=== PATIENT | male | born 1980 | race Caucasian/White ===

== ENCOUNTER 2023-08-19 05:07 | Emergency (ER) | payer OTHER, SELFPAY ==
--- NOTE | ~2023-08-19 | XR_ITS ---
EXAMINATION: XR SHOULDER, RIGHT CLINICAL INFORMATION: Acute pain COMPARISON: None available. TECHNIQUE: Two views of the right shoulder. FINDINGS: Glenohumeral alignment is anatomic on these views. No acute fracture is seen. The acromioclavicular joint is intact with minimal degenerative change. XR/XR shoulder RT min 2V IMPRESSION: No acute findings identified.
[2023-08-19 05:07] VITALS: BP 166/109; PULSE 95; RESP 18; TEMP 36.8; O2SAT 99; BMI 35.9
--- NOTE | 2023-08-19 06:33 | ED_ITS ---
HPI - Extremity Problem General Chief complaint: Extremity Injury, Upper Stated complaint: Shoulder pain Time Seen by Provider: 08/19/23 06:31 Source: patient Mode of arrival: ambulatory Limitations: no limitations History of Present Illness HPI Narrative: 43 yo male with history of HLD, HTN, right hand dominant here with complaints of right shoulder pain x 3-4 days with no known injury. 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 He has been taking Tylenol for pain with continued symptoms. Patient reports pain begins in his right shoulder and radiates down the right arm, worsened with movement. No associated numbness, tingling or weakness. Related Data Previous Rx's ?Medication ?Instructions ?Recorded cyclobenzaprine 10 mg tablet 10 mg PO TID PRN muscle spasm #15 08/19/23 tabs oxycodone 5 mg tablet 5 mg PO Q6H PRN pain #5 tabs 08/19/23 prednisone 20 mg tablet 60 mg (3 x 20 mg) PO DAILY #15 tabs 08/19/23 Allergies Allergy/AdvReac Type Severity Reaction Status Date / Time No Known Allergies Allergy Verified 08/19/23 05:10 Review of Systems Review of Systems: Yes all other systems are reviewed and are negative Constitutional: Constitutional: Reports no additional constitutional c omplaints, Denies body ache(s), Denies chills, Denies fever(s), Denies headache(s) and Denies weakness Eyes: Eyes: Reports no additional eye complaints and Denies change in vision ENT: Reports system reviewed and no additional complaints, except as documented, Denies dizziness, Denies headache(s), Denies nasal congestion, Denies nasal discharge and Denies neck pain Cardiovascular: Cardiovascular: Reports no additional cardiovascular complaints, Denies chest pain, Denies leg edema and Denies dyspnea Respiratory: Respiratory: Reports no additional respiratory complaints, Denies cough and Denies dyspnea Gastrointestinal: Gastrointestinal: Reports no additional gastrointestinal complaints, Denies abdominal pain, Denies diarrhea, Denies nausea and Denies vomiting Genitourinary: Genitourinary: Denies urinary incontinence Musculoskeletal: Musculoskeletal: Reports no additional musculoskeletal complaints, Denies back pain, Reports arthralgias, Denies joint swelling, Denies neck pain, Denies numbness, Reports radiating pain into limb and Denies tingling Integumentary/Breasts: Skin/Breast: Reports system reviewed and no additional complaints, except as docu and Denies rash Neurologic: Reports system reviewed and no additional complaints, except as documented, Denies Abnormal speech present, Denies dizziness, Denies headache(s), Denies numbness, Denies tingling and Denies weakness PMFSH Past Medical History Attestation statement: The following information was validated with the patient. Source: old records reviewed and nursing notes reviewed Social History Social History Advance Directives: No Advance Directives Information Provided: Yes Do you have a plan to hurt others: No Plan Physical Exam Vital Signs: Vital Signs: Last Vital Signs Temp 98.2 F 08/19/23 07:40 Pulse 87 08/19/23 07:40 Resp 14 08/19/23 07:40 BP 164/98 H 08/19/23 07:40 Pulse Ox 97 08/19/23 07:40 O2 Del Method Room Air 08/19/23 07:40 BMI result Body Mass Index 35.9 Const: General: cooperative, healthy appearing, comfortable and no acute distress Orientation/consciousness: patient oriented x3 Limitations: no limitations HEENT: Head: Yes normal to inspection Ears: hearing grossly normal bilaterally General nose exam: Normal external nose present Face and sinus: Yes normal facial exam Mouth: Normal oral and palatal mucosa present Throat: Yes posterior oropharynx normal Eyes: General: appearance normal, both eyes and all related structures Pupils: Equal, round and reactive pupils present Neck: Neck: Yes normal visual inspection Chest: Chest palpation & inspection: normal inspection of the chest Resp: Effort & Inspection: normal respiratory effort Auscultation: clear to auscultation bilaterally Cardio: Rate: regular rate Rhythm: regular rhythm Peripheral pulses: Peripheral pulses 2+ throughout GI: Inspection: Yes normal to inspection Palpation (GI): Soft to palpation and nontender Auscultation: normal bowel sounds Back/Spine/Pelvis: Thoracic/Lumbar Spine: thoracic and lumbar spine normal to inspection Skin: General skin exam: no rashes or lesions noted Neuro: General: patient oriented x3, no focal motor deficits and normal sensation to monofilament Cranial nerves: Yes Equal, round and reactive pupils present Cognition (Neuro): normal cognition Speech: No Abnormal speech present Gait exam (Neuro): Normal gait present Motor exam (neuro): 5/5 motor strength present throughout Extrem: Other: Pain on palpation to the right anterior/posterior/superior shoulder as well as palpable muscle spasm in the right trapezius. Pain is worsened with active/passive abduction of the shoulder. FROM with no pain of right elbow, right wrist and right hand. 2+ radial/ulnar pulses. Normal sensation. General: Yes normal to inspection Course Course Course Narrative: X-rays show no bony abnormality. Seems more muscular on exam. Improvement with analgesia in the ER. Will discharge home with recommendations to f/u with PCP and strict return precautions. Medications Administered Discontinued Medications Generic Name Dose Route Start Last Admin Trade Name Leonardo PRN Reason Stop Dose Admin Cyclobenzaprine HCl 10 mg 08/19/23 06:39 08/19/23 07:03 Cyclobenzaprine Hcl 10 Mg Tablet PO 08/19/23 06:40 10 mg ONCE ONE Administration Ketorolac Tromethamine 60 mg 08/19/23 06:39 08/19/23 07:03 Ketorolac Tromethamine 60 Mg/2 Ml Vial IM 08/19/23 06:40 60 mg ONCE ONE Administration Oxycodone HCl 5 mg 08/19/23 07:57 08/19/23 08:07 Oxycodone Hcl Immed Release 5 Mg Tablet PO 08/19/23 07:58 5 mg ONCE ONE Administration Medical Decision Making Medical Decision Making [facility] Narrative: 43 yo male here with complaints of atraumatic right shoulder pain which radiates down right arm with no associated numbness, tingling or weakness x 3-4 days. Pain on palpation to the right anterior/posterior/superior shoulder as well as palpable muscle spasm in the right trapezius. Pain is worsened with active/passive abduction of the shoulder.? FROM with no pain of right elbow, right wrist and right hand.? 2+ radial/ulnar pulses.? Normal sensation.? Seems more muscular on exam. Will obtain baseline x-rays. Patient currently driving on assignment. He is from [place] where his primary providers are. He drove overnight and his truck is parked in our parking lot. He sleeps in his truck in between driving and plans to sleep today in his truck. Will give Toradol IM, flexeril PO Of note, asymptomatic HTN. Did not take his morning blood pressure medications. Differential Diagnosis Differential Diagnoses: The differential diagnosis associated with the presentation includes Muscle spasm, tendonitis, bursitis, sprain, strain Low suspicion for fracture, dislocation, vascular injury, malignancy Admission/Observation Consideration of admission/observation: Escalation of care including admission/observation considered Low suspicion for fracture, dislocation, vascular injury, malignancy?warranting advanced imaging, urgent orthopedic consult Independent Interpretation I performed an independent interpretation of an: Plain X-Ray Interpretation: I independently reviewed the x-rays and agree with rad report. Radiology Impression Discussion of test interpretation with radiology: I have reviewed the radiologist's reading. Radiologist Impression: [address] [address] XRay Report Signed Patient: Andrey Owen MR#: [id number] : 1980 Acct:[id number] Age/Sex: 43 / M ADM Date: 08/19/23 Loc: HO.ED Attending Dr: Ordering Physician: Edith Lam MD Date of Service: 08/19/23 Procedure(s): XR shoulder RT min 2V Accession Number(s): [id number] cc: Edith Lam MD; Physician,Unknown ~ EXAMINATION: XR SHOULDER, RIGHT CLINICAL INFORMATION: Acute pain COMPARISON: None available. TECHNIQUE: Two views of the right shoulder. FINDINGS: Glenohumeral alignment is anatomic on these views. No acute fracture is seen. The acromioclavicular joint is intact with minimal degenerative change. XR/XR shoulder RT min 2V IMPRESSION: No acute findings identified. Tests considered The following testing was considered but not selected: Low suspicion for fracture, dislocation, vascular injury, malignancy?warranting advanced imaging Prescription Management I considered prescription management with: Pain Medication Social Determinants Patient?s care significantly limited by Social Determinants of Health including: Problems related to primary support group Discharge Plan Discharge Clinical Impression: Right shoulder pain Patient Disposition: Home, Self-Care Instructions: Shoulder Pain (ED) Additional Instructions: Your x-rays show no bony abnormalities. Your pain seems more muscular however for continued pain, change in pain you may need further imaging by your primary care doctor therefore we recommend following up with your providers in your home state. Apply heat or ice to the area Gentle stretching of the arm/shoulder with massage Take the medications as prescribed. Flexeril is a muscle relaxant so you cannot take this while driving as it may make you sleepy. Your insurance does not cover prescriptions for anti-inflammatory medications such as Motrin or Aleve. You may purchase these over the counter. Take ibuprofen 600mg (3 tablets of 200mg) every 6 hours as needed for pain. Prescriptions: New cyclobenzaprine 10 mg tablet 10 mg PO TID PRN (Reason: muscle spasm) Qty: 15 0RF prednisone 20 mg tablet 60 mg PO DAILY Qty: 15 0RF oxycodone 5 mg tablet 5 mg PO Q6H PRN (Reason: pain) Qty: 5 0RF Rx Instructions: Partial Fill upon patient request. Referrals: Physician,Unknown J [Primary Care Provider] - 1 week Print Language: Vietnamese
[2023-08-19] MEDS: Ketorolac Tromethamine 60 MG/2 ML VIAL IM (07:03)
[2023-08-19] MEDS: Cyclobenzaprine HCl 10 MG TABLET PO (07:03)
[2023-08-19 07:40] VITALS: BP 164/98; PULSE 87; RESP 14; TEMP 36.8; O2SAT 97
[2023-08-19] MEDS: oxyCODONE HCl Immed Release 5 MG TABLET PO (08:07)
[2023-08-19 09:29] VITALS: BP 170/98; PULSE 74; RESP 16; O2SAT 98
[2023-08-19 09:30] VITALS: BP 170/98; PULSE 74; RESP 16; TEMP 36.8; O2SAT 98
== END 2023-08-19 09:30 | disposition home or self-care (01) ==
PROVIDERS: Emergency Provider Emergency Medicine
DX: M25.511 Pain in right shoulder (principal); I10 Essential (primary) hypertension; E78.5 Hyperlipidemia, unspecified
CPT/HCPCS: 73030; 96372; 99284; J1885